=== PATIENT | male | born 1965 | race Caucasian/White ===

== ENCOUNTER 2019-05-05 00:12 | Emergency (ER) | payer BC, OTHER ==
[2019-05-05 00:29] VITALS: BP 134/98
--- NOTE | 2019-05-05 00:50 | EDM.PDOC ---
ED HPI GENERAL MEDICAL PROBLEM - General Chief Complaint: Genitourinary Problem Stated Complaint: KIDNEY STONE Time Seen by Provider: 05/05/19 00:46 Source of Information: Reports: Patient, Family, RN Notes Reviewed History Limitations: Reports: No Limitations - History of Present Illness INITIAL COMMENTS - FREE TEXT/NARRATIVE: 83-year-old gentleman presents emergency department today complaint of abdominal pain right flank he does have a history of nephrolithiasis he did take pain medication prior to presenting to the emergency department however at the time of arrival sudden onset pain, at this time he is pain-free he is concerned that he may have passed a stone he has had several stones in the past Treatments [employer]GER: Reports: Other (see below) 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 - Related Data Allergies Allergy/AdvReac Type Severity Reaction Status Date / Time Penicillins Allergy Cannot Verified 05/05/19 00:19 Remember Sulfa (Sulfonamide Allergy Rash Verified 05/05/19 00:19 Antibiotics) Home Meds: Home Meds Fluticasone Furoate [Veramyst] 2 spray NS DAILY 06/16/14 [History] Cyclobenzaprine [Flexeril] 10 mg PO Q8HR PRN 06/25/14 [History] Lansoprazole 15 mg PO DAILY 06/25/14 [History] Azelastine [Astelin Nasal Soln] 1 applic TOP DAILY 09/14/18 [History] Fluticasone Propionate [Flovent HFA 110 MCG] 1 puff IH ASDIRECTED PRN 09/14/18 [ History] Losartan [Cozaar] 50 mg PO DAILY 09/14/18 [History] Acetaminophen with Codeine [Acetaminophen-Cod #3] 1 - 2 tab PO Q4HR PRN [History] Fluorometholone 1 drop EYERT ASDIRECTED 05/05/19 [History] Past Medical History Cardiovascular History: Reports: Hypertension Respiratory History: Reports: Asthma Gastrointestinal History: Reports: Cholelithiasis Genitourinary History: Reports: Renal Calculus - Past Surgical History Head Surgeries/Procedures: Reports: None HEENT Surgical History: Reports: Adenoidectomy, Tonsillectomy, Other (See Below) Other HEENT Surgeries/Procedures: sinus surgery GI Surgical History: Reports: Cholecystectomy, Hernia, Abdominal, Richelle Fundoplication Musculoskeletal Surgical History: Reports: Other (See Below) Other Musculoskeletal Surgeries/Procedures:: knee surgery ACL Social & Family History - Family History Family Medical History: Unobtainable - Caffeine Use Caffeine Use: Reports: Coffee ED ROS GENERAL - Review of Systems Review Of Systems: See Below Respiratory: Reports: No Symptoms Cardiovascular: Reports: No Symptoms GI/Abdominal: Reports: No Symptoms : Reports: Flank Pain ED EXAM, GI/ABD - Physical Exam Exam: See Below Exam Limited By: No Limitations General Appearance: Alert, WD/WN, No Apparent Distress Respiratory/Chest: No Respiratory Distress GI/Abdominal Exam: Soft, Non-Tender Course - Vital Signs Last Recorded V/S: Last Vital Signs Temp 97.2 F 05/05/19 00:27 Pulse 74 05/05/19 00:27 Resp 14 05/05/19 00:27 BP 134/98 H 05/05/19 00:27 Pulse Ox 94 L 05/05/19 00:27 Departure - Departure Time of Disposition: 00:49 Disposition: Home, Self-Care 01 Condition: Fair Clinical Impression: Right flank pain - Discharge Information Referrals: Terry Meneses MD [Primary Care Provider] - Additional Instructions: Continue to push fluids, continue with her pain medication use the Flomax for the next couple of days until pain is resolved, Please followup with your primary care provider in 3 to 5 days if not better, please call return to the emergency department with worsening of symptoms. - Assessment/Plan Plan: Assessment Acuity = acute Site and laterality = right flank pain now resolved Etiology = possible kidney stone] Manifestations = none] Location of injury = Home Lab values = none Plan Talk to him about options including further evaluation he declined at this time however he would like a prescription for Flomax 0.4 mg 1 tab by mouth daily total #30 no follow-up with his primary care 3-5 days This note was dictated using [employer] recognition software please call with any questions on syntax or grammar.
== END 2019-05-05 00:55 | disposition home or self-care (01) ==
LOC: JP.ED 00:12
DX: R10.9 Unspecified abdominal pain (principal); I10 Essential (primary) hypertension; Z88.0 Allergy status to penicillin; Z88.2 Allergy status to sulfonamides; Z98.890 Other specified postprocedural states; Z90.49 Acquired absence of other specified parts of digestive tract
CPT/HCPCS: 99283

== ENCOUNTER 2024-06-09 06:47 | Day surgery (SDC) | payer OTHER ==
[2024-06-09] MEDS: Lactated Ringers 1,000 ML IV SCH (07:00)
[2024-06-09] MEDS ORDERED: Midazolam 1 MG/ML 2 ML SDV ONE (07:18)
[2024-06-09] MEDS ORDERED: fentaNYL 50 MCG/ML SDV ONE (07:18)
[2024-06-09] MEDS ORDERED: Propofol 200 MG/20 ML SDV ONE (07:18)
[2024-06-09 08:53] VITALS: BP 116/80; PULSE 61
== END 2024-06-09 09:25 | disposition home or self-care (01) ==
LOC: JP.SDS 06:47
PROVIDERS: ATTEND Family Medicine
DX: Z12.11 Encounter for screening for malignant neoplasm of colon (principal); D12.4 Benign neoplasm of descending colon; D12.8 Benign neoplasm of rectum; Z86.010 Personal history of colon polyps; I10 Essential (primary) hypertension; K21.9 Gastro-esophageal reflux disease without esophagitis; F41.9 Anxiety disorder, unspecified; J45.909 Unspecified asthma, uncomplicated; Z88.2 Allergy status to sulfonamides; Z88.0 Allergy status to penicillin
CPT/HCPCS: 45380; J2250; J2704; J3010; J7120